=== PATIENT | male | born 1950 | race Caucasian/White ===

== ENCOUNTER → 2020-08-01 10:19 | Outpatient (BNVA) | payer MEDICARE, SELFPAY | PROVIDERS: PCP Internal Medicine; Referring Provider Internal Medicine; Visit Provider Hospitalist | DX: J44.9 Chronic obstructive pulmonary disease, unspecified (principal); J96.10 Chronic respiratory failure, unspecified whether with hypoxia or hypercapnia; R91.8 Other nonspecific abnormal finding of lung field; Z99.81 Dependence on supplemental oxygen | CPT/HCPCS: 99214 ==

== ENCOUNTER → 2020-12-17 10:34 | Outpatient (BNVA) | payer MEDICARE, SELFPAY | PROVIDERS: PCP Internal Medicine; Visit Provider Hospitalist | DX: Z76.89 Persons encountering health services in other specified circumstances (principal) | CPT/HCPCS: Q3014 ==

== ENCOUNTER 2021-08-28 12:14 | Outpatient (REF) | payer MEDICARE, SELFPAY ==
--- NOTE | ~2021-08-28 | CT_ITS ---
EXAMINATION: CT CHEST WITHOUT CONTRAST CLINICAL INFORMATION: Pulmonary nodule COMPARISON: Outside chest x-ray report November 2014. Images not available for comparison. TECHNIQUE: Multidetector volumetric CT imaging of the chest was done. Axial MIP volume rendering provided. Sagittal and coronal reformatted images were obtained. This CT examination was performed using dose optimization techniques as appropriate, variously including the following: *Automated exposure control *Adjustment of mA and/or kV according to patient size (this includes techniques or standardized protocols for targeted exams where dose is matched to indication/reason for exam; i.e. extremities or head) *Use of iterative reconstruction technique DLP: 150 mGy-cm FINDINGS: LUNGS: There is evidence of emphysema. There are innumerable small pulmonary nodules or micronodules. There is an abnormal parenchymal density seen in the right upper lobe. This is irregular in shape with spiculations. This has a partially solid and partially cystic component. Cystic component may represent areas of focal bronchiectasis. Overall this measures 5 x 1.3 cm in transverse and longitudinal dimension coronal reconstructed image 36 and 2 cm in AP dimension sagittal reconstructed image 85. Solid component measures 1 x 2 x 1 cm. There is a similar-appearing heterogeneous parenchymal density in the peripheral left upper lobe. This measures 1.4 x 2.6 cm axial image 232 series 7 and has cystic areas likely representing focal bronchiectasis. There is a similar-appearing triangular-shaped peripheral or subpleural parenchymal density in the right lower lobe measuring 1 cm axial image 282 series 7. There is a 5 x 7 mm right pulmonary nodule. The right minor fissures difficult to visualize. This may be near the minor fissure axial image 254 series 7 and may represent a subpleural lymph node. MEDIASTINUM: The heart does not appear enlarged. There is a small pericardial effusion. There is coronary artery calcification. There are no enlarged hilar or mediastinal lymph nodes. The thoracic aorta is tortuous. The visualized thyroid gland is unremarkable. PLEURA: There is no pleural effusion. No pleural mass or thickening. AXILLA: No lymphadenopathy. UPPER ABDOMEN: There are innumerable low-attenuation liver lesions probably representing cysts. Largest measures 1 cm. The gallbladder is been removed. There is a 1 cm low-attenuation lesion in the upper pole of the left kidney that probably represents a cyst. There is evidence of atherosclerotic disease. There is linear intraluminal calcification the visualized upper abdominal aorta questionable for calcified dissection flap versus calcified thrombus. OSSEOUS STRUCTURES: There are degenerative changes of the spine. CT/CT chest wo con IMPRESSION: Emphysema. Innumerable small pulmonary nodules or micronodules. 5 x 7 mm right pulmonary nodule, question adjacent to the minor fissure representing a subpleural lymph node Several heterogeneous parenchymal densities without solid component and cystic areas, later probably representing focal bronchiectasis. The largest is in the right upper lobe measuring 5 x 1.3 x 2 cm. Infectious, inflammatory and neoplastic processes should be considered. Chest CT follow-up is recommended. Comparison with old outside exams if available is also recommended.
== END 2021-08-28 12:15 | disposition home or self-care (01) ==
LOC: HO.CT 12:14
PROVIDERS: PCP Family Medicine; Visit Provider Hospitalist
DX: R91.8 Other nonspecific abnormal finding of lung field (principal)
CPT/HCPCS: 71250

== ENCOUNTER → 2021-09-01 13:56 | Outpatient (BNVA) | payer MEDICARE, SELFPAY | PROVIDERS: PCP Family Medicine; Visit Provider Hospitalist | DX: J96.11 Chronic respiratory failure with hypoxia (principal); R91.8 Other nonspecific abnormal finding of lung field; J43.2 Centrilobular emphysema | CPT/HCPCS: Q3014 ==

== ENCOUNTER 2022-01-14 12:39 | Outpatient (REF) | payer MEDICARE, SELFPAY ==
--- NOTE | ~2022-01-14 | CT_ITS ---
EXAMINATION: CT CHEST WITHOUT CONTRAST CLINICAL INFORMATION: Follow up pulmonary nodules. COMPARISON: CT chest without contrast 08/28/2021. TECHNIQUE: Multidetector volumetric CT imaging of the chest was done. Axial MIP volume rendering provided. Sagittal and coronal reformatted images were obtained. This CT examination was performed using dose optimization techniques as appropriate, variously including the following: Automated exposure control. Adjustment of mA and/or kV according to patient size (this includes techniques or standardized protocols for targeted exams where dose is matched to indication/reason for exam; i.e. extremities or head). Use of iterative reconstruction technique. DLP: 130 mGy-cm FINDINGS: AUTO BODY MECHANIC APPRENTICE: Hyperinflated lungs. LUNGS: There is centrilobular and paraseptal emphysema with subpleural reticular interstitial prominence throughout both lower lobes and upper lobes. There is ill-defined parenchymal opacity in the right upper lobe with a solid component improved since the last exam. The solid component measures 2.5 x 0.9 cm. The cystic component is likely part of the underlying emphysematous changes and is unchanged. Additional parenchymal ill-defined opacities seen in the left upper lobe posterior segment which appears more linear is stable and best visualized on axial image 267/7. An ill-defined patchy opacity is seen in the superior segment of right lower lobe a few scattered patchy ill-defined opacities in the right lower lobe posterior segments on axial image 23/4 and 29/4-30/4, similar to previous exam. There is bilateral interstitial thickening. There is a 8 mm right upper lobe pulmonary nodule axial image 325/7, peribronchiolar 4 mm nodule right upper lobe axial image 371/7, 6 mm triangular opacity right upper lobe axial image 406/7 are stable. There is an ill-defined new solid opacity in the left lower lobe lateral basal segment measuring 2.6 x 2.3 cm axial image 563/7. Posterior basilar linear atelectasis/scarring bilaterally is stable. There is peribronchial wall thickening with mild bronchiectasis in both lower lobes and upper lobes. MEDIASTINUM: The thyroid lobes are symmetrical and normal. The central trachea and bronchi are widely patent. The heart size and pulmonary vascularity is normal. Short axis measuring 5 mm left subcarinal lymph node seen. It is normal. No abnormal-sized mediastinal or hilar lymph nodes. No pericardial effusion seen. There is mild coronary artery calcifications. PLEURA: There is minimal posterior pleural thickening. There is no pleural effusion. AXILLA: No lymphadenopathy. UPPER ABDOMEN: There are multiple hypodense lesions consistent with cysts, stable. No solid lesion seen. No intrahepatic ductal dilatation. The gallbladder has been removed. Visualized spleen, adrenal glands and the pancreas is unremarkable. OSSEOUS STRUCTURES: No lytic or sclerotic process seen. CT/CT chest wo con IMPRESSION: Emphysema with multiple ill-defined parenchymal opacities and multiple pulmonary nodules. There is a new ill-defined solid opacity left lower lobe lateral basal segment. There is no abnormal mediastinal or axillary lymphadenopathy. Mild coronary artery calcifications. Peribronchiolar thickening and mild bronchiectasis is stable. Chronic reticular interstitial thickening subpleural as well as intraparenchymal is stable. Recommend continued annual follow up. Fleischner guidelines were followed.
== END 2022-01-14 12:40 | disposition home or self-care (01) ==
LOC: HO.CT 12:39
PROVIDERS: Visit Provider Hospitalist
DX: R91.8 Other nonspecific abnormal finding of lung field (principal)
CPT/HCPCS: 71250

== ENCOUNTER → 2022-01-21 11:02 | Outpatient (BNVA) | payer MEDICARE, SELFPAY | PROVIDERS: PCP Internal Medicine; Visit Provider Hospitalist | DX: J96.11 Chronic respiratory failure with hypoxia (principal); J43.2 Centrilobular emphysema; J18.9 Pneumonia, unspecified organism; R91.8 Other nonspecific abnormal finding of lung field | CPT/HCPCS: Q3014 ==

== ENCOUNTER → 2022-05-21 13:27 | Outpatient (BNVA) | payer MEDICARE, SELFPAY | PROVIDERS: PCP Family Medicine Geriatric Medicine; Visit Provider Hospitalist | DX: J96.11 Chronic respiratory failure with hypoxia (principal); R91.8 Other nonspecific abnormal finding of lung field; J43.2 Centrilobular emphysema; J18.9 Pneumonia, unspecified organism; R91.1 Solitary pulmonary nodule | CPT/HCPCS: Q3014 ==

== ENCOUNTER → 2023-01-29 09:27 | Outpatient (BNVA) | payer MEDICARE, SELFPAY | PROVIDERS: PCP Internal Medicine; Visit Provider Hospitalist | DX: J96.11 Chronic respiratory failure with hypoxia (principal); J43.2 Centrilobular emphysema; R91.1 Solitary pulmonary nodule; R91.8 Other nonspecific abnormal finding of lung field | CPT/HCPCS: Q3014 ==

== ENCOUNTER 2023-09-15 08:35 | Outpatient (AMB) | payer MEDICARE, SELFPAY ==
[2023-09-15 08:41] VITALS: BP 134/60; PULSE 76; O2SAT 93; BMI 21.5
--- NOTE | 2023-09-15 08:41 | MHC.OFFVIS ---
Intake Vital Signs 09/15/23 08:41 Height 5 ft 7 in Weight 137 lb BMI 21.5 BP 134/60 Blood Pressure Location Lt brachial Position Sitting Pulse 76 Pulse Source Pulse Oximeter Pulse Oximetry (%) 93 Oxygen Delivery Method Room Air Comment 3 Liters Oxygen([employer]) Intake Visit Reasons: dyspnea : 3 month f/u Java Web Developer Required: No Allergies Latex Allergy (Severe, Uncoded 09/15/23 08:44) Skin Redness Sulfa Drugs Allergy (Severe, Uncoded 09/15/23 08:44) Diarrhea HPI HPI Comments History of Present Illness Details The patient is a 73-year-old gentleman with advanced COPD, pulmonary nodules and chronic respiratory failure on oxygen. The patient has a telephone visit. Overall the patient has been having worsening abdominal pain. This abdominal pain has been worsening his respiratory status. He continues on his respiratory regimen with partial resolution of the symptoms. The oxygen has been helpful. He has been trying to decrease his prednisone but has not been able to decrease the below 15 mg. advised him to stay on that dose until he gets his colonoscopy and endoscopy to further address the abdominal pain. In the meantime he denies any significant coughing denies any significant chest pain. He has not had to be hospitalized which is very happy about. 10/14/2020 the patient is a telephone visit. Overall she is pending well to this current respiratory regimen. Still having hard time with his activities of daily living. He continues uses oxygen throughout the day. Does complaint of shortness of breath with minimal activity. He has been trying to get to assisted living. However, they have not accepted his application. He is going to try to apply again since he has a hard time with making his meals and with bathing and also getting dressed. He has been able to get down to 10 mg of prednisone which is very reassuring. We will keep him on 10 mg daily for the next couple months and then will reassess in 2 months. Ideally be great to continue to decrease slowly down to the lowest most effective dose. The patient is otherwise without any other concerns. 12/17/2020 the patient has a telephone visit. Overall the patient has been doing well. He has been using the oxygen. He has noticed increased shortness of breath with activity. But overall doing well. He was able to cut down the prednisone down to 7.5 mg daily. He understands that he is going to get vaccinated for the COVID-19 the next coming days. I explained to him that he is better off trying to decrease the prednisone further to have a stronger affect from the vaccine. Therefore who going to try cutting it down to 5 mg daily. I will send a prescription to the pharmacy so he can continue taking the 5 mg. He is also continue using the oxygen as prescribed specially with activity. He is going to start going down the [place] and exercising. However with the pandemic in his residence is hard for him to be outside in the hallway because of the rules and regulations. The patient did have a CT scan of the chest to follow up his pulmonary nodules back sometime this spring. Will plan to hold off on any imaging studies due to the pandemic and will follow up with a CT scans of the fall. 09/01/2021 the patient has a telephone visit. He has been complaining of significant GI symptoms and therefore change his appointment to a telehealth. Overall from a respiratory status is doing well. He still has episodes of coughing shortness of breath which is baseline for him. He is no longer taking the azithromycin antibiotic. We did review his CT scan of the chest that he had and I personally reviewed. It appears that he has a new nodular density which appears to be ill-defined in the right upper lobe area adjacent to emphysema. The area looks irregular and appears to be more inflammatory infectious than malignant. Therefore, will restart the patient on azithromycin 3 times a week and will reassess in 3 months time. If the area continues to be abnormal then will have to address what the next best diagnostic option is. Hopeful that with the antibiotic therapy will see improvement, however. 01/21/2022 the patient has a telephone visit. Recently he was hospitalized at [facility] with worsening shortness of breath. He was diagnosed with pneumonia. He was given broad-spectrum antibiotics in the hospital and then discharged on amoxicillin clavulanic acid. After 5 days he could not tolerated any longer because the GI adverse effects. He did call me and he stop the antibiotics. More recently he did undergo a repeat CT scan of the chest that was actually scheduled for pulmonary nodule follow-up. This is done at [facility]. I personally reviewed the images. He does have a patchy airspace disease in the left lower lobe which appears to be a masslike room consolidation. Very suspicious for infectious process. His all the findings of the emphysema pulmonary nodules are stable. At this point the patient needs additional antibiotics to treat this airspace disease. We also need to follow up with it in 2-3 months to make sure that has resolved. If it is not resolved or if it has increased in size we need to consider it a malignant process. Therefore will set a follow-up for him to come back after his CT scan in order to address any diagnostic interventions. 05/21/2022 the patient has a telephone visit. He is now recovering at home. He has had multiple evaluations and hospitalizations of [facility]. With following his pulmonary nodules. he has had multiple relatively recent CT scans. Back in December she was admitted at [facility] with pneumonia and pulmonary nodules. Then he was admitted that [facility] sometime in March where he had a CT scan of the chest demonstrating more numerous pulmonary nodules some measuring 1.6 cm. Again in April he was readmitted to the hospital and had a CT scan of the chest demonstrating the persistent findings of the pulmonary nodules and some that had decreasing size. During the hospitalization the recommendation was for the patient to undergo a PET scan as an outpatient. I did talk to the patient about the PET scan which should be a reasonable test to assess the pulmonary nodules And to assess metabolic activity. The patient is high risk for cancer with significant COPD. In the meantime he continues on the Advair and Spiriva. . He is wondering if there is any other medications he consider trying. I did recommend he can switch over to Trelegy. the patient is agreeable to this and I will send a prescription to the pharmacy. 01/29/2023 the patient has a telehealth visit today. The patient has been quarantine at home. She was in the hospital and then ultimately developed COVID-19 while in the hospital. He was then transferred to a rehab closer to [place]. He was also about 10 days now he is back home for the last few days. He has been noticing increasing shortness of breath difficult to take a deep breath in moderate severity. The patient also has some mucus that he is expectorating. Difficult to expectorate at this time. Patient is concerned because he is not getting any better. He does not want to leave the house because he has traumatized after getting COVID in the hospital. Explained to him that we can try some medications but if he is not better he needs to go to the ER in view of his symptoms. Specially if he gets any worse or not better in the next 48 hours. The patient the patient is yet to get his PET scan. Initially it was postponed because of his hospitalization and then he postponed because he got sick again. At this point is not clear when he is going to have the PET scan. Hopefully can having the next few weeks. The patient also concerning 1.6 cm pulmonary nodule that needs to be further evaluated. 09/15/2023 the patient is here for a pulmonary follow-up visit. Since the last time we evaluated the patient had an abnormal CT scan with nodular densities which were concerning. The patient was prompted to have a PET scan. However, ended up being hospitalized again sometime in April 2023. which was diagnosed with a peripheral pulmonary emboli. He was started on anticoagulation. Therefore, he did not have the PET scan. Subsequent to that the patient was evaluated again at [facility] sometime in August with worsening respiratory symptoms. The patient had a repeat CTA with no evidence of any pulmonary emboli in addition to that the nodular densities had improved. No evidence of any significant airspace disease. The patient does have extensive emphysema. He continues on the Eliquis. He also continues on the oxygen. The patient's health ultimately worsened after having COVID back in November 2022. [facility] Medical History (Updated 09/16/23 @ 19:46 by Julio Kulkarni MD) Pulmonary emboli Pulmonary nodule Chronic respiratory failure Pulmonary nodules/lesions, multiple COPD (chronic obstructive pulmonary disease) Social History (Updated 01/21/22 @ 11:07 by ELIZA Pond) Patient Tobacco Use Status: Former Tobacco user Tobacco use type: Cigarette Years Smoked: 40 years Review of Systems Const Denies fever(s) and Denies night sweats ENT Denies change in voice, Denies lip swelling, Denies mouth pain, Reports nasal congestion, Reports nasal discharge and Denies tongue swelling Card Denies chest pain, Reports dyspnea and Reports dyspnea on exertion Resp Reports cough, Reports dyspnea and Reports dyspnea on exertion GI Denies abdominal pain Musc Reports abnormal gait and Reports muscle weakness Neuro Denies Neuro-related abnormal movements and Reports abnormal gait Psych Denies no additional complaints Marlo/Lymph Denies easy bleeding and Denies lymphadenopathy Aller/Immun Denies lip swelling and Denies tongue swelling Physical Exam Vital Signs: Last Vital Signs Pulse 76 09/15/23 08:41 BP 134/60 09/15/23 08:41 Pulse Ox 93 09/15/23 08:41 Oxygen Delivery Method Room Air 09/15/23 08:41 BMI result Body Mass Index 21.5 Const General: alert HEENT General nose exam: Abnormal external nose present and Nasal discharge present Eyes Pupils: Equal, round and reactive pupils present Neck Neck: Yes normal visual inspection, Yes full ROM and Yes no lymphadenopathy Chest Chest palpation & inspection: normal inspection of the chest Resp Auscultation: rales and diminished lung sounds Cardio Rate: regular rate Rhythm: regular rhythm Heart sounds: S1 normal heart sound present and S2 normal heart sound present GI Palpation (GI): Soft to palpation and nontender Auscultation: normal bowel sounds General: Yes no CVA tenderness Back/Spine/Pelvis Back: no CVA tenderness Skin General skin exam: rashes and/or lesions noted Neuro Cranial nerves: Yes Equal, round and reactive pupils present Office Procedures Flu Questionnaire Does the patient have a severe egg allergy?: No Does the patient have severe life threatening allergies?: No Does the patient have a fever or illness today?: No Has the patient ever had Guillain-Lemoyne Syndrome?: No Has the patient ever had any past reaction to a flu shot?: No Immunizations flu vacc [id number] 6mos up(PF) 60 mcg(15 mcgx4)/0.5 mL IM syringe Performing Provider: Julio Kulkarni MD Performing Location: [facility] Pulmonology Services Administered by: Ninfa Mckeon LPN on 09/15/23 09:04 Dose Route Admin Location Dispensed Lot Number Expiration Date [facility] Medical Record Librarians Teacher 0.5 mL IM Right Deltoid 0.5 mL [id number] 04/30/24 [id number] [employer] VIS Given Date VIS Provided VIS Publication Date 09/15/23 Single Vaccine 21 Eligibility Eligibility Date Funding Source Not [facility] [place] Eligible 09/15/23 Private Assessment & Plan Assessment & Plan (1) Chronic respiratory failure: Code(s): J96.10 - Chronic respiratory failure, unspecified whether with hypoxia or hypercapnia Qualifiers: Respiratory failure complication: hypoxia Qualified Code(s): J96.11 - Chronic respiratory failure with hypoxia (2) Pulmonary nodules/lesions, multiple: Code(s): R91.8 - Other nonspecific abnormal finding of lung field (3) COPD (chronic obstructive pulmonary disease): Code(s): J44.9 - Chronic obstructive pulmonary disease, unspecified Qualifiers: COPD type: emphysema Emphysema type: centrilobular Qualified Code(s): J43.2 - Centrilobular emphysema (4) Pulmonary nodule: Code(s): R91.1 - Solitary pulmonary nodule (5) Pulmonary emboli: Code(s): I26.99 - Other pulmonary embolism without acute cor pulmonale Qualifiers: Pulmonary embolism type: multiple subsegmental (without acute cor pulmonale) Qualified Code(s): I26.94 - Multiple subsegmental pulmonary emboli without acute cor pulmonale Plan continue Trelegy continue short-acting beta agonist as needed continue prednisone 10 mg daily will decrease to every other day continue Eliquis, consider stoping on his F/U visit. We will reassess then continue singular follow-up in 3 months Orders: Orders Influenza [id number] Immunization 09/15/23 J44.9 - Chronic obstructive pulmonary disease, unspecified Coding Level of Care Code Est Pt Level 4 (29274) Diagnoses Chronic respiratory failure with hypoxia J96.11 Respiratory failure complication: hypoxia Pulmonary nodules/lesions, multiple R91.8 Centrilobular emphysema J43.2 COPD type: emphysema Emphysema type: centrilobular Pulmonary nodule R91.1 Multiple subsegmental pulmonary emboli without acute cor pulmonale I26.94 Pulmonary embolism type: multiple subsegmental (without acute cor pulmonale) Time Spent (min) 17
== END 2023-09-15 09:11 | disposition home or self-care (01) ==
PROVIDERS: PCP Internal Medicine; Visit Provider Hospitalist
DX: J96.11 Chronic respiratory failure with hypoxia (principal); R91.8 Other nonspecific abnormal finding of lung field; J43.2 Centrilobular emphysema; R91.1 Solitary pulmonary nodule; I26.94 Multiple subsegmental thrombotic pulmonary emboli without acute cor pulmonale
CPT/HCPCS: 99214

== ENCOUNTER → 2023-09-15 08:35 | Outpatient (BNVA) | payer MEDICARE, SELFPAY | PROVIDERS: PCP Internal Medicine; Visit Provider Hospitalist | DX: J96.11 Chronic respiratory failure with hypoxia (principal); J43.2 Centrilobular emphysema; J44.9 Chronic obstructive pulmonary disease, unspecified; R91.8 Other nonspecific abnormal finding of lung field; I26.94 Multiple subsegmental thrombotic pulmonary emboli without acute cor pulmonale; Z79.01 Long term (current) use of anticoagulants; Z99.81 Dependence on supplemental oxygen; Z23 Encounter for immunization | CPT/HCPCS: 90471; 90686; 99212 ==